=== PATIENT | male | born 1980 | race Hispanic/Latino ===

== ENCOUNTER 2019-08-22 06:55 | Emergency (ER) | payer OTHER ==
[2019-08-22 07:35] LABS: Absolute Lymphocytes (CBC) 2.1 K/uL (0.7-4.9); Basophils % 0.7 % (0-1.3); Lymphocytes % 30.6 % (15.3-44.8); MPV 8.7 fL (7.6-11.3); RBC Red Blood Cell Count 5.61 M/uL (4.33-5.43)
[2019-08-22 07:41] LABS: Protime INR 0.92
[2019-08-22 07:54] LABS: ALT/SGPT 13 U/L (12-78); AST/SGOT 9 U/L (15-37); Albumin 4.2 g/dL (3.4-5.0); Alkaline Phosphatase 95 U/L (45-117); BUN Blood Urea Nitrogen 11 mg/dL (7-18); Bicarbonate 28 mmol/L (21-32); Bilirubin Direct 0.1 mg/dL (0-0.2); Bilirubin Total 0.7 mg/dL (0.2-1.0); Glucose Level 285 mg/dL (74-106); NT PRO-BNP 8 pg/mL (<125); Potassium 3.8 mmol/L (3.5-5.1); Protein, Total 8.2 g/dL (6.4-8.2); Sodium Level 137 mmol/L (136-145); Troponin (Emerg Dept Use Only) < 0.02 ng/mL (0.0-0.045)
--- NOTE | 2019-08-22 10:00 | EDPHYS ---
Physician Documentation [facility] Name: Billy Franco Jr Age: 39 yrs Sex: Male : 1980 Arrival Date: 08/22/2019 Time: 07:01 Bed 5 Private MD: ED Physician Jeevan Dumont HPI: 08/21 07:21 This 39 yrs old Male presents to ER via Ambulatory with complaints of Chest jr8 Pain. 07:21 The patient or guardian reports chest pain that is located primarily in the substernal jr8 area. The pain radiates to the left arm. Associated signs and symptoms: Pertinent positives: shortness of breath. The chest pain is described as a pressure. Duration: The patient or guardian reports a single episode, that is now resolved, that lasted 15 minute(s). Modifying factors: The symptoms are alleviated by nothing. the symptoms are aggravated by nothing. Severity of pain: At its worst the pain was mild in the emergency department the pain has resolved. The patient has not experienced similar symptoms in the past. The patient has not recently seen a physician. Historical: - Allergies: 07:13 No Known Allergies; bp - Home Meds: 07:13 None [Active]; bp - PMHx: 07:13 None; bp - Immunization history:: Adult Immunizations up to date. - Social history:: Smoking status: Patient denies any tobacco usage or history of. ROS: 07:21 Eyes: Negative for injury, pain, redness, and discharge, ENT: Negative for injury, jr8 pain, and discharge, Neck: Negative for injury, pain, and swelling, Abdomen/GI: Negative for abdominal pain, nausea, vomiting, diarrhea, and constipation, Back: Negative for injury and pain, MS/Extremity: Negative for injury and deformity, Skin: Negative for injury, rash, and discoloration, Neuro: Negative for headache, weakness, numbness, tingling, and seizure. 07:21 Cardiovascular: Positive for chest pain, Negative for edema, orthopnea, palpitations, paroxysmal nocturnal dyspnea. 07:21 Respiratory: Positive for shortness of breath, Negative for cough, dyspnea on exertion, hemoptysis, orthopnea, pleurisy, sputum production, wheezing. Exam: 07:21 Eyes: Pupils equal round and reactive to light, extra-ocular motions intact. Lids and jr8 lashes normal. Conjunctiva and sclera are non-icteric and not injected. Cornea within normal limits. Periorbital areas with no swelling, redness, or edema. ENT: Nares patent. No nasal discharge, no septal abnormalities noted. Tympanic membranes are normal and external auditory canals are clear. Oropharynx with no redness, swelling, or masses, exudates, or evidence of obstruction, uvula midline. Mucous membranes moist. Neck: Trachea midline, no thyromegaly or masses palpated, and no cervical lymphadenopathy. Supple, full range of motion without nuchal rigidity, or vertebral point tenderness. No Meningismus. Chest/axilla: Normal chest wall appearance and motion. Nontender with no deformity. No lesions are appreciated. Cardiovascular: Regular rate and rhythm with a normal S1 and S2. No gallops, murmurs, or rubs. Normal PMI, no JVD. No pulse deficits. Respiratory: Lungs have equal breath sounds bilaterally, clear to auscultation and percussion. No rales, rhonchi or wheezes noted. No increased work of breathing, no retractions or nasal flaring. Abdomen/GI: Soft, non-tender, with normal bowel sounds. No distension or tympany. No guarding or rebound. No evidence of tenderness throughout. Back: No spinal tenderness. No costovertebral tenderness. Full range of motion. Skin: Warm, dry with normal turgor. Normal color with no rashes, no lesions, and no evidence of cellulitis. MS/ Extremity: Pulses equal, no cyanosis. Neurovascular intact. Full, normal range of motion. Neuro: Awake and alert, GCS 15, oriented to person, place, time, and situation. Cranial nerves II-XII grossly intact. Motor strength 5/5 in all extremities. Sensory grossly intact. Cerebellar exam normal. Normal gait. 07:21 ECG was reviewed by the Attending Physician. Vital Signs: 07:11 BP 164 / 99; Pulse 64; Resp 17; Temp 97.6; Pulse Ox 99% ; Weight 74.84 kg; Height 5 ft. bp 11 in. (180.34 cm); 07:49 BP 155 / 106; Pulse 73; Resp 14; Pulse Ox 99% ; bp 09:28 BP 150 / 100; Pulse 67; Resp 13; Pulse Ox 99% ; bp 07:11 Body Mass Index 23.01 (74.84 kg, 180.34 cm) bp MDM: 07:10 Patient medically screened. jr8 09:11 Data reviewed: vital signs, nurses notes, lab test result(s), EKG, radiologic studies, jr8 plain films. Data interpreted: Pulse oximetry: on room air is 99 %. Interpretation: normal. Counseling: I had a detailed discussion with the patient and/or guardian regarding: the historical points, exam findings, and any diagnostic results supporting the discharge/admit diagnosis, lab results, radiology results, the need for outpatient follow up, a assistant produce manager, a family practitioner. ED course: Patient has had noting to eat this morning. Glucose 285. At rest patient has had multiple elevated BP readings. Counseled patient on this and that he has undiagnosed diabetes and HTN. Will need to f/u with FM and cardiology. Because of the current pandemic and decreased ability to get into primary care office. I will start patient on medication. Patient good with this. . 09:57 Differential diagnosis: abnormal EKG, acute myocardial infarction, acute pericarditis, jr8 anxiety, chest wall pain, cholecystitis, Cholelithiasis costochondritis, esophagitis, gastritis, gastroesophageal reflux disease (GERD), myocarditis, pancreatitis, pleurisy, pneumonia, pneumothorax, pulmonary embolus, stable angina, thoracic aortic disection, unstable angina. ED course: second troponin negative. Patient without pain. VS stable. Will d/c to f/u with FM and Cardiology . 08/21 07:18 Order name: Basic Metabolic Panel; Complete Time: 08:08 bp 08/21 07:18 Order name: CBC with Diff; Complete Time: 08:08 bp 08/21 07:18 Order name: LFT's; Complete Time: 08:08 bp 08/21 07:18 Order name: Magnesium; Complete Time: 08:08 bp 08/21 07:18 Order name: NT PRO-BNP; Complete Time: 08:08 bp 08/21 07:18 Order name: PT-INR; Complete Time: 08:08 bp 08/21 07:18 Order name: Troponin (emerg Dept Use Only); Complete Time: 08:08 bp 08/21 07:18 Order name: XRAY Chest (1 view) bp 08/21 07:18 Order name: EKG; Complete Time: 07:19 bp 08/21 07:18 Order name: Cardiac monitoring; Complete Time: 07:19 bp 08/21 07:18 Order name: EKG - Nurse/Tech; Complete Time: 07:19 bp 08/21 07:18 Order name: IV Saline Lock; Complete Time: 07:49 bp 08/21 09:22 Order name: Troponin (emerg Dept Use Only); Complete Time: 09:57 bp 08/21 09:22 Order name: EKG; Complete Time: 09:23 bp 08/21 07:18 Order name: Labs collected and sent; Complete Time: 07:49 bp 08/21 07:18 Order name: O2 Per Protocol; Complete Time: 07:19 bp 08/21 07:18 Order name: O2 Sat Monitoring; Complete Time: 07:18 bp 08/21 09:22 Order name: EKG - Nurse/Tech; Complete Time: 09:29 bp EC:21 Rate is 84 beats/min. Rhythm is regular, Sinus Rhythm. Right axis deviation noted. GA jr8 interval is normal at 142 msec. QRS interval is normal at 52 msec. QT interval is normal at 453 msec. No Q waves. T waves are Normal. No ST changes noted. Clinical impression: No evidence of ischemia. Interpreted by me. Reviewed by me. Administered Medications: No medications were administered Disposition: 11:20 Co-signature as Attending Physician, Jeevan Dumont MD I agree with the assessment and 4 plan of care. Disposition: 08/22/19 09:59 Discharged to Home. Impression: Chest pain, unspecified, Type 2 diabetes mellitus, Essential (primary) hypertension. - Condition is Stable. - Discharge Instructions: Nonspecific Chest Pain, Hypertension, Diabetes Mellitus and Food. - Prescriptions for Lisinopril 10 mg Oral Tablet - take 1 tablet by ORAL route once daily; 20 tablet. Metformin 500 mg Oral Tablet Sustained Release 24 hr - take 1 tablet by ORAL route once daily with evening meal; 20 tablet. - Work release form, Medication Reconciliation Form, Thank You Letter, Antibiotic Education, Prescription Opioid Use form. - Follow up: Scott Vasquez MD; When: 2 - 3 days; Reason: Recheck today's complaints, Continuance of care, Re-evaluation by your physician. Follow up: Severo Bashir DO; When: 2 - 3 days; Reason: Recheck today's complaints, Continuance of care, Re-evaluation by your physician. - Problem is new. - Symptoms have improved. Signatures: Dispatcher [employer] EDMS Mayur Franklin PA PA jr8 Hayden Farah, RN RN bp Jeevan Dumont MD MD tw4 Corrections: (The following items were deleted from the chart) 10:10 09:59 08/22/2019 09:59 Discharged to Home. Impression: Chest pain, unspecified; Type 2 bp diabetes mellitus; Essential (primary) hypertension. Condition is Stable. Forms are Medication Reconciliation Form, Thank You Letter, Antibiotic Education, Prescription Opioid Use. Follow up: Scott Vasquez; When: 2 - 3 days; Reason: Recheck today's complaints, Continuance of care, Re-evaluation by your physician. Follow up: Severo Bashir; When: 2 - 3 days; Reason: Recheck today's complaints, Continuance of care, Re-evaluation by your physician. Problem is new. Symptoms have improved. jr8
--- NOTE | 2019-08-22 10:00 | ER ---
Nurse's Notes [facility] Name: Billy Franco Jr Age: 39 yrs Sex: Male : 1980 Arrival Date: 08/22/2019 Time: 07:01 Bed 5 Private MD: Diagnosis: Chest pain, unspecified;Type 2 diabetes mellitus;Essential (primary) hypertension Presentation: 08/21 07:11 Chief complaint: Patient states: "TIGHT" LEFT SIDED CHEST PAIN 5/10 RADIATING TO LUE bp WITH SOB. Coronavirus screen: Proceed with normal triage. Ebola Screen: No symptoms or risks identified at this time. Initial Sepsis Screen: Does the patient meet any 2 criteria? No. Patient's initial sepsis screen is negative. Does the patient have a suspected source of infection? No. Patient's initial sepsis screen is negative. Risk Assessment: Do you want to hurt yourself or someone else? Patient reports no desire to harm self or others. Onset of symptoms was August 22, 2019 at 05:30. 07:11 Method Of Arrival: Ambulatory bp 07:11 Acuity: YAIMA 3 bp Triage Assessment: 07:13 General: Appears in no apparent distress. comfortable, Behavior is cooperative, bp appropriate for age, anxious. Pain: Complains of pain in left lateral anterior chest Pain radiates to left arm. EENT: No deficits noted. Neuro: No deficits noted. Cardiovascular: Reports chest pain, shortness of breath, since 0530 Rhythm is sinus rhythm. Respiratory: Reports shortness of breath. GI: No signs and/or symptoms were reported involving the gastrointestinal system. : No signs and/or symptoms were reported regarding the genitourinary system. Derm: No deficits noted. Musculoskeletal: No deficits noted. Historical: - Allergies: 07:13 No Known Allergies; bp - Home Meds: 07:13 None [Active]; bp - PMHx: 07:13 None; bp - Immunization history:: Adult Immunizations up to date. - Social history:: Smoking status: Patient denies any tobacco usage or history of. Screenin:14 Abuse screen: Denies threats or abuse. Denies injuries from another. Nutritional bp screening: No deficits noted. Tuberculosis screening: No symptoms or risk factors identified. Fall Risk None identified. Assessment: 07:14 General: SEE TRIAGE NOTE. Pain: Pain began 2 hours ago. bp 08:13 Reassessment: PT INITIAL FINDINGS UNREMARKABLE EXCEPT BP AND GLUCOSE. REPEAT CARDIAC bp INDICES DUE AT 0930. 09:29 Reassessment: REPEAT CARDIAC INDICES IN PROCESS. PT ASYMPTOMATIC AT THIS TIME. bp 10:09 Reassessment: PT D/C HOME AMBULATORY, DX WITH NON-SPECIFIC CHEST PAIN. bp Vital Signs: 07:11 BP 164 / 99; Pulse 64; Resp 17; Temp 97.6; Pulse Ox 99% ; Weight 74.84 kg; Height 5 ft. bp 11 in. (180.34 cm); 07:49 BP 155 / 106; Pulse 73; Resp 14; Pulse Ox 99% ; bp 09:28 BP 150 / 100; Pulse 67; Resp 13; Pulse Ox 99% ; bp 07:11 Body Mass Index 23.01 (74.84 kg, 180.34 cm) bp ED Course: 07:01 Patient arrived in ED. ag3 07:10 Mayur Franklin PA is PHCP. jr8 07:10 Jeevan Dumont MD is Attending Physician. jr8 07:11 Hayden Farah, DANY is Primary Nurse. bp 07:12 Triage completed. bp 07:13 Arm band placed on. bp 07:14 Patient has correct armband on for positive identification. Bed in low position. Call bp light in reach. Side rails up X2. hall monitor on. Pulse ox on. NIBP on. 07:23 Initial lab(s) drawn, by me, sent to lab. Inserted saline lock: 20 gauge in right kj1 antecubital area, using aseptic technique. Blood collected. 07:23 EKG done, by ED staff, reviewed by Mayur ROYAL. kj1 07:55 XRAY Chest (1 view) Sent. bp 08:04 XRAY Chest (1 view) In Process Unspecified. EDMS 09:58 Scott Vasquez MD is Referral Physician. jr8 09:58 Severo Bashir DO is Referral Physician. jr8 09:59 EKG done, by tractor trailer technician. reviewed by Mayur ROYAL. at1 10:09 No provider procedures requiring assistance completed. IV discontinued, intact, bp bleeding controlled, No redness/swelling at site. Pressure dressing applied. Patient maintains SpO2 saturation greater than 95% on room air. Administered Medications: No medications were administered Outcome: :59 Discharge ordered by MD. beauchamp 10:09 Discharged to home ambulatory. bp 10:09 Condition: stable 10:09 Discharge instructions given to patient, Instructed on discharge instructions, follow up and referral plans. medication usage, Demonstrated understanding of instructions, follow-up care, medications, Prescriptions given X 2. 10:10 Patient left the ED. bp Signatures: Dispatcher [employer] EDMS Mayur Franklin PA PA jr8 Michelle Wilson, anesthesiology teacher EKG Tat1 Hayden Farah, DANY RN bp Megan Orantes ag3 Karen Rodriguez kj1 Corrections: (The following items were deleted from the chart) 07:18 07:11 BP 164 / 99; Pulse 64bpm; Resp 17bpm; Pulse Ox 99%; 74.84 kg; Height 5 ft. 11 bp in.; BMI: 23.0; bp
[2019-08-22 10:17] VITALS: TEMP 97.6; O2SAT 99
[2019-08-22 10:20] VITALS: BP 150/100
--- NOTE | 2019-08-22 11:05 | RAD REPORT ---
EXAM DESCRIPTION: RAD - Chest Single View - 08/22/2019 8:03 am CLINICAL HISTORY: CHEST PAIN Chest pain. COMPARISON: No comparisons FINDINGS: Portable technique limits examination quality. The lungs are grossly clear. The heart is normal in size. No displaced fractures. IMPRESSION: No acute intrathoracic process suspected.
--- NOTE | 2019-08-22 17:32 | EKG ---
Test Date: 2019-08-22 Test Time: 09:34:09 Hotel Engineer: BLAIR MEASUREMENT RESULTS: Intervals: Rate: 74 [place]: 148 QRSD: 82 QT: 404 QTc: 448 [place]: P: 49 [place]: 148 QRS: 48 T: 21 INTERPRETIVE STATEMENTS: Normal sinus rhythm Nonspecific T wave abnormality Abnormal ECG Compared to ECG 08/22/2019 07:17:25 T-wave abnormality now present Right-axis deviation no longer present Electronically Signed On 08-22-19 17:31:45 CDT by Scott Vasquez
--- NOTE | 2019-08-22 17:33 | EKG ---
Test Date: 2019-08-22 Test Time: 07:17:25 Clinic Administrator: NATALIE MEASUREMENT RESULTS: Intervals: Rate: 84 MO: 142 QRSD: 82 QT: 384 QTc: 453 [place]: P: 76 [place]: 142 QRS: 97 T: 35 INTERPRETIVE STATEMENTS: Normal sinus rhythm Rightward axis Borderline ECG No previous ECG available for comparison Electronically Signed On 08-22-19 17:31:50 CDT by Scott Vasquez
== END 2019-08-22 10:10 | disposition home or self-care (01) ==
LOC: ER 06:55
DX: R07.9 Chest pain, unspecified (principal); E11.9 Type 2 diabetes mellitus without complications; I10 Essential (primary) hypertension
CPT/HCPCS: 36415; 71045; 80048; 80076; 83735; 83880; 84484; 85025; 85610; 93005; 99285

== ENCOUNTER 2019-09-05 16:28 | Emergency (ER) | payer OTHER ==
--- NOTE | 2019-09-05 18:33 | ER ---
Nurse's Notes [facility] Name: Billy Franco Jr Age: 39 yrs Sex: Male : 1980 Arrival Date: 09/05/2019 Time: 16:30 Bed 2 Private MD: Diagnosis: Acute lymphadenitis of face, head and neck Presentation: 09/04 16:43 Chief complaint: Patient states: "I think I have a lymph node swollen under my right aa5 jaw and it's been hurting when I swallow on the back of my right jaw". Pt states "I just started taking Metformin for diabetes last Monday". Coronavirus screen: Proceed with normal triage. Patient denies a cough. Patient denies shortness of breath or difficulty breathing. Patient denies measured and/or subjective temperature greater than 100.4F prior to today's visit. Patient denies travel on a cruise ship or to a country the [facility] currently lists as an affected area. Patient denies contact with known and/or suspected case of COVID-19. Ebola Screen: Patient negative for fever greater than or equal to 101.5 degrees Fahrenheit, and additional compatible Ebola Virus Disease symptoms. Initial Sepsis Screen: Does the patient meet any 2 criteria? No. Patient's initial sepsis screen is negative. Does the patient have a suspected source of infection? No. Patient's initial sepsis screen is negative. Risk Assessment: Do you want to hurt yourself or someone else? Patient reports no desire to harm self or others. Onset of symptoms was August 2019. 16:43 Acuity: YAIMA 3 aa5 16:43 Method Of Arrival: Ambulatory aa5 Triage Assessment: 17:00 General: Appears in no apparent distress. comfortable, Behavior is cooperative, bp appropriate for age, anxious. Pain: Complains of pain in right submandibular area. EENT: No deficits noted. Neuro: No deficits noted. Cardiovascular: No deficits noted. Respiratory: No deficits noted. GI: No signs and/or symptoms were reported involving the gastrointestinal system. : No signs and/or symptoms were reported regarding the genitourinary system. Derm: No deficits noted. Musculoskeletal: No deficits noted. Historical: - Allergies: 16:48 No Known Allergies; aa5 - Home Meds: 16:48 Lisinopril Oral [Active]; metformin 1,000 mg oral tab once a day [Active]; aa5 - PMHx: 16:48 Diabetes - NIDDM; Hypertension; aa5 - PSHx: 16:48 None; aa5 - Immunization history:: Flu vaccine is up to date. - Social history:: Smoking status: Patient denies any tobacco usage or history of. Screenin:06 Abuse screen: Denies threats or abuse. Denies injuries from another. Nutritional ls4 screening: No deficits noted. Tuberculosis screening: No symptoms or risk factors identified. Fall Risk None identified. Assessment: 18:04 General: Appears in no apparent distress. uncomfortable, Behavior is calm, cooperative. ls4 Pain: Complains of pain in right submandibular area Pain currently is 5 out of 10 on a pain scale. at worst was 8 out of 10 on a pain scale. Quality of pain is described as sharp, tender, throbbing, Pain began 2-3 days ago. Alleviated by medications. Neuro: Level of Consciousness is awake, alert, obeys commands, Oriented to person, place, time, situation, Activities Officer are equal bilaterally Moves all extremities. Gait is steady, Speech is normal, Facial symmetry appears normal, Pupils are PERRLA, Intact. Cardiovascular: No deficits noted. Chest pain is denied. Respiratory: Denies cough, shortness of breath labored breathing, pain with respiration, pain with cough, pain with movement, air hunger. GI: No deficits noted. No signs and/or symptoms were reported involving the gastrointestinal system. : No deficits noted. No signs and/or symptoms were reported regarding the genitourinary system. EENT: Reports pain when swallowing. Derm: No deficits noted. No signs and/or symptoms reported regarding the dermatologic system. Musculoskeletal: No deficits noted. No signs and/or symptoms reported regarding the musculoskeletal system. 18:41 Reassessment: Patient appears in no apparent distress at this time. Patient and/or ls4 family updated on plan of care and expected duration. Pain level reassessed. Patient is alert, oriented x 3, equal unlabored respirations, skin warm/dry/pink. 18:47 Reassessment: PT D/C HOME AMBULATORY, DX WITH LYMPHADENITIS OF FACE AND NECK. bp Vital Signs: 16:43 BP 131 / 80; Pulse 78; Resp 18 S; Temp 98.2(O); Pulse Ox 100% on R/A; Weight 73.48 kg aa5 (R); Height 5 ft. 11 in. (180.34 cm) (R); 18:19 BP 99 / 60; Pulse 66; Resp 17; Pulse Ox 97% ; bp 16:43 Body Mass Index 22.59 (73.48 kg, 180.34 cm) aa5 ED Course: 16:30 Patient arrived in ED. as 16:43 Arm band placed on. aa5 16:47 Triage completed. aa5 16:56 Kartik Couch PA is PHCP. cp 16:57 Martell Lozano MD is Attending Physician. cp 17:00 Ne Chao, RN is Primary Nurse. ls4 18:06 Patient has correct armband on for positive identification. Bed in low position. Call ls4 light in reach. Side rails up X 1. Pulse ox on. NIBP on. Verbal reassurance given. Diet:. 18:07 No provider procedures requiring assistance completed. Patient did not have IV access ls4 during this emergency room visit. Administered Medications: No medications were administered Outcome: 18:32 Discharge ordered by MD. cp 18:41 Discharged to home ambulatory. ls4 18:41 Condition: good 18:41 Discharge instructions given to patient, Instructed on discharge instructions, follow up and referral plans. medication usage, safety practices, Demonstrated understanding of instructions, follow-up care, medications. 18:41 Prescriptions given X 1. ls4 18:47 Patient left the ED. bp Signatures: Lizzy Basurto Audri, RN RN [facility] Kartik Couch PA PA cp Peltier, Brian, RN RN bp Ne Chao RN RN ls4 Corrections: (The following items were deleted from the chart) 17:06 17:05 General: Appears bp bp
--- NOTE | 2019-09-05 18:33 | EDPHYS ---
Physician Documentation [facility] Name: Billy Franco Jr Age: 39 yrs Sex: Male : 1980 Arrival Date: 09/05/2019 Time: 16:30 Bed 2 Private MD: ED Physician Martell Lozano HPI: 09/04 17:10 This 39 yrs old Male presents to ER via Ambulatory with complaints of Neck cp Pain, >24Hrs Old. 17:10 The patient or guardian complains of pain, that is acute, swelling. The symptoms are cp located on the right submandibular area. Onset: The symptoms/episode began/occurred 2 day(s) ago. Associated signs and symptoms: Pertinent positives: pain with swallowing on right side, Pertinent negatives: fever, headache, vomiting, cough. The pain does not radiate. Historical: - Allergies: 16:48 No Known Allergies; aa5 - Home Meds: 16:48 Lisinopril Oral [Active]; metformin 1,000 mg oral tab once a day [Active]; aa5 - PMHx: 16:48 Diabetes - NIDDM; Hypertension; aa5 - PSHx: 16:48 None; aa5 - Immunization history:: Flu vaccine is up to date. - Social history:: Smoking status: Patient denies any tobacco usage or history of. ROS: 17:15 Constitutional: Negative for body aches, chills, fever, poor PO intake. cp 17:15 ENT: Positive for sore throat, Negative for drainage from ear(s), ear pain, dental cp pain, difficulty swallowing, difficulty handling secretions. 17:15 Neck: Positive for swelling, tenderness, of the right submandibular area. 17:15 Respiratory: Negative for cough, shortness of breath, wheezing. 17:15 Abdomen/GI: Negative for abdominal pain, nausea, vomiting, and diarrhea. 17:15 Skin: Negative for rash. 17:15 Neuro: Negative for headache. 17:15 All other systems are negative. Exam: 17:22 Constitutional: The patient appears in no acute distress, alert, awake, comfortable, cp non-toxic, well developed, well nourished. 17:22 Head/Face: Normocephalic, atraumatic. cp 17:22 Eyes: Periorbital structures: appear normal, Conjunctiva: normal, no exudate, no injection, Sclera: no appreciated abnormality, Lids and lashes: appear normal, bilaterally. 17:22 ENT: External ear(s): are unremarkable, Ear canal(s): are normal, clear, TM's: are normal, no evidence of bulging, no erythema, Nose: is normal, Mouth: Lips: normal, Oral mucosa: pink and intact, moist, Posterior pharynx: is normal, airway is patent, no erythema, no exudate, Dental exam: normal, Voice: is normal. 17:22 Neck: ROM/movement: is normal, is supple, no range of motions limitations, no meningismus, no nuchal rigidity, Lymph nodes: lymphadenopathy is appreciated, right submandibular. 17:22 Chest/axilla: Inspection: normal. 17:22 Cardiovascular: Rate: normal, Rhythm: regular. 17:22 Respiratory: the patient does not display signs of respiratory distress, Respirations: normal, no use of accessory muscles, no retractions, labored breathing, is not present. 17:22 Skin: no rash present. Vital Signs: 16:43 BP 131 / 80; Pulse 78; Resp 18 S; Temp 98.2(O); Pulse Ox 100% on R/A; Weight 73.48 kg aa5 (R); Height 5 ft. 11 in. (180.34 cm) (R); 18:19 BP 99 / 60; Pulse 66; Resp 17; Pulse Ox 97% ; bp 16:43 Body Mass Index 22.59 (73.48 kg, 180.34 cm) aa5 MDM: 17:02 Patient medically screened. cp 17:30 Differential diagnosis: strep throat, enlarged lymph node, cellulitis. cp 18:31 Data reviewed: vital signs, nurses notes, lab test result(s). cp 18:31 Counseling: I had a detailed discussion with the patient and/or guardian regarding: the cp historical points, exam findings, and any diagnostic results supporting the discharge/admit diagnosis, lab results, to return to the emergency department if symptoms worsen or persist or if there are any questions or concerns that arise at home. 09/04 17:03 Order name: Strep cp 09/04 17:49 Order name: Throat Culture EDMS Administered Medications: No medications were administered Disposition: 19:00 Chart complete. cp Disposition: 09/05/19 18:32 Discharged to Home. Impression: Acute lymphadenitis of face, head and neck. - Condition is Stable. - Discharge Instructions: Lymphadenopathy. - Prescriptions for Amoxicillin 875 mg Oral Tablet - take 1 tablet by ORAL route every 12 hours for 10 days; 20 tablet. - Medication Reconciliation Form, Thank You Letter, Antibiotic Education, Prescription Opioid Use form. - Follow up: Private Physician; When: 2 - 3 days; Reason: Worsening of condition. - Problem is new. - Symptoms have improved. Addendum: 09/09/2019 20:28 Co-signature as Attending Physician, Martell Lozano MD I agree with the assessment and k dr plan of care. Signatures: Dispatcher [employer] EDMS Martell Lozano MD MD [facility] Marzena Morocho RN RN aa5 Kartik Couch PA PA Hayden Shin, RN RN bp Corrections: (The following items were deleted from the chart) 09/04 18:47 18:32 09/05/2019 18:32 Discharged to Home. Impression: Acute lymphadenitis of face, bp head and neck. Condition is Stable. Forms are Medication Reconciliation Form, Thank You Letter, Antibiotic Education, Prescription Opioid Use. Follow up: Private Physician; When: 2 - 3 days; Reason: Worsening of condition. Problem is new. Symptoms have improved. cp
[2019-09-06 06:15] VITALS: TEMP 98.2
[2019-09-06 06:16] VITALS: BP 99/60; O2SAT 97
== END 2019-09-05 18:47 | disposition home or self-care (01) ==
LOC: ER 16:28
DX: L04.0 Acute lymphadenitis of face, head and neck (principal); I10 Essential (primary) hypertension; E11.9 Type 2 diabetes mellitus without complications
CPT/HCPCS: 87070; 87081; 99283